=== PATIENT | female | born 1975 | race Caucasian/White ===

== ENCOUNTER 2018-06-12 03:38 | Emergency (ER) | payer SELFPAY ==
[~2018-06-12] VITALS: Ht 157.5 cm; Wt 48.1 kg
[2018-06-12 03:46] VITALS: BP 119/76
[2018-06-12] MEDS ORDERED: CEPHALEXIN MONOHYDRATE 500 MG CAPSULE PO ONE ×2 (04:20→04:30)
[2018-06-12] MEDS ORDERED: predniSONE 20 MG TABLET ONE (04:21)
[2018-06-12] MEDS ORDERED: VALACYCLOVIR HCL 500 MG TABLET ONE (04:21)
--- NOTE | 2018-06-12 04:28 | NUR ---
Patient discharged to home in stable condition. Written and verbal after care instructions given. Patient verbalizes understanding of instruction.
[2018-06-12] MEDS ORDERED: VALACYCLOVIR HCL 500 MG TABLET PO ONE (04:30)
[2018-06-12] MEDS ORDERED: predniSONE 20 MG TABLET PO ONE (04:30)
== END 2018-06-12 04:29 | disposition home or self-care (01) ==
LOC: ER 03:44
DX: B02.9 Zoster without complications (principal); H60.11 Cellulitis of right external ear; L03.221 Cellulitis of neck; Z60.2 Problems related to living alone; Z90.89 Acquired absence of other organs
CPT/HCPCS: 99284; A4606; J7512

== ENCOUNTER 2018-06-17 12:53 | Emergency (ER) | payer SELFPAY ==
[~2018-06-17] VITALS: Ht 157.5 cm; Wt 45.4 kg
[2018-06-17 12:59] VITALS: BP 107/60
== END 2018-06-17 14:30 | disposition home or self-care (01) ==
LOC: ER 12:53
DX: B86 Scabies (principal); H60.11 Cellulitis of right external ear; L21.9 Seborrheic dermatitis, unspecified; Z60.2 Problems related to living alone